=== PATIENT | female | born 1980 | race Caucasian/White ===

== ENCOUNTER 2019-09-05 13:57 | Emergency (ER) | payer OTHER ==
[~2019-09-05] VITALS: Ht 162.6 cm; Wt 71.5 kg
[2019-09-05] MEDS ORDERED: FLUO40CA PO (14:29)
[2019-09-05] MEDS ORDERED: OMEP40CA97 PO (14:29)
[2019-09-05 14:43] LABS: BASO % 0.3 % (0.0-1.0); EOS # 0.2 10^3/uL (0.0-0.5); EOS % 1.4 % (0.0-3.0); HEMATOCRIT 43.5 % (36.0-47.0); HEMOGLOBIN 14.8 g/dl (12.0-15.5); LYMPH % 8.2 % (24.0-44.0); MEAN CORPUSCULAR HEMOGLOBIN 30.7 pg (27.0-33.0); MEAN CORPUSCULAR VOLUME 90.2 fl (80.0-96.0); MONO # 0.8 10^3/uL (0.0-0.8); MONO % 6.1 % (0.0-5.0); NEUTROPHILS # 10.5 10^3/uL (1.5-8.5); NEUTROPHILS % 83.6 % (36.0-66.0); PLATELET COUNT, AUTOMATED 243 10^3/uL (150-450); RED BLOOD COUNT 4.82 10^6/uL (4.00-5.40); WHITE BLOOD COUNT 12.5 10^3/uL (4.0-10.0)
[2019-09-05] MEDS ORDERED: GI COCKTAIL 50ML BTL(HYOSCYAMINE/MAALOX/LIDOCAINE VISCOUS)(1:3:1) PO ONE (14:45)
--- NOTE | 2019-09-05 14:59 | REP ---
CHEST, SINGLE VIEW: There is no evidence of acute infiltrate. No pleural effusion is seen. The heart is normal in size. The mediastinal silhouette is unremarkable. The visualized osseous structures are intact. IMPRESSION: No acute pulmonary disease. Electronically Signed by Caleb Graf MD 09/06/2019 12:32 P
[2019-09-05 15:09] LABS: BLOOD UREA NITROGEN 6 MG/DL (7-18); CALCIUM LEVEL 8.9 MG/DL (8.5-10.1); CARBON DIOXIDE LEVEL 27 MEQ/L (21-32); CHLORIDE LEVEL 107 MEQ/L (98-107); CK-MB VALUE MASS < 1.0 NG/ML (<3.6); CPK CREATINE PHOSPHOKINASE 52 U/L (26-192); CREATININE FOR GFR 0.93 MG/DL (0.55-1.30); GLOMERULAR FILTRATION RATE > 60.0 (>60); GLUCOSE, FASTING 74 MG/DL (70-100); MB/CK RELATIVE INDEX 1.92 (< OR =4); POTASSIUM SERUM 4.1 MEQ/L (3.5-5.1); SODIUM LEVEL 140 MEQ/L (136-145); TROPONIN I < 0.02 NG/ML (< 0.10)
[2019-09-05] MEDS ORDERED: PANTOPRAZOLE 40MG INJ (PROTONIX) (C9113) IV ONE (16:00)
[2019-09-05] MEDS ORDERED: DICYCLOMINE 10 MG CAP PO ONE (16:00)
[2019-09-05] MEDS ORDERED: METOCLOPRAMIDE INJ 10MG/2ML VIAL (J2765) IV ONE (16:00)
[2019-09-05 17:00] VITALS: BP 150/88
--- NOTE | 2019-09-06 13:19 | ECGEPIP ---
[facility] - ED Test Date: 2019-09-05 Pat Name: ARABELLA LABOY Department: Room: - Gender: Female Yam Curer: : [id number] Requested By: Marcia Sawant Order Number: [id number] Reading MD: Marcia Sawant Measurements Intervals [place] Rate: 86 P: 77 [place]: 148 QRS: 77 QRSD: 95 T: 74 QT: 378 QTc: 454 Interpretive Statements SINUS RHYTHM NO PRIOR Electronically Signed on 09-06-2019 13:18:53 EST by Marcia Sawant
== END 2019-09-05 17:49 | disposition left against medical advice (07) ==
LOC: M ED 13:57
DX: K29.70 Gastritis, unspecified, without bleeding (principal); K21.9 Gastro-esophageal reflux disease without esophagitis; Z98.84 Bariatric surgery status; Z79.899 Other long term (current) drug therapy; Z88.1 Allergy status to other antibiotic agents; Z88.2 Allergy status to sulfonamides; Z88.8 Allergy status to other drugs, medicaments and biological substances; F17.210 Nicotine dependence, cigarettes, uncomplicated
CPT/HCPCS: 71045; 80048; 82550; 82553; 84484; 85025; 93005; 93041; 94760; 96374; 96375; 99285; C9113; J2765

== ENCOUNTER → 2023-08-01 | Outpatient (REF) ==
[~2023-08-01] MED LIST: FLUO40CA PO; OMEP40CA4 PO
== END ==
LOC: M RAD 11:49
PROVIDERS: ATTEND Internal Medicine
DX: M25.511 Pain in right shoulder (principal); M46.1 Sacroiliitis, not elsewhere classified; M16.0 Bilateral primary osteoarthritis of hip

== ENCOUNTER 2024-06-24 15:44 | Emergency (ER) | payer OTHER ==
[~2024-06-24] VITALS: Ht 157.5 cm; Wt 94.2 kg
[2024-06-24] MEDS ORDERED: BUPR15TASR (16:09)
[2024-06-24] MEDS ORDERED: CYCL-707 (16:09)
[2024-06-24] MEDS ORDERED: ALBU8.5H (16:09)
[2024-06-24] MEDS ORDERED: PROP10TA56 (16:09)
[2024-06-24] MEDS ORDERED: FERR325T19 (16:09)
[2024-06-24] MEDS ORDERED: METO1TAB87 (16:09)
[2024-06-24] MEDS ORDERED: B-1210009 (16:09)
[2024-06-24] MEDS ORDERED: VITA200016 (16:09)
[2024-06-24] MEDS ORDERED: LOSA50TA28 (16:09)
[2024-06-24] MEDS ORDERED: HYDR200T46 PO (16:10)
[2024-06-24] MEDS: METOCLOPRAMIDE INJ 10MG/2ML VIAL IV ONE (16:41)
[2024-06-24 16:59] LABS: BASO # 0.1 10^3/uL (0.0-0.2); BASO % 0.9 % (0.0-1.0); EOS # 0.1 10^3/uL (0.0-0.5); HEMATOCRIT 35.1 % (36.0-47.0); LYMPH # 1.3 10^3/uL (1.5-5.0); LYMPH % 14.1 % (24.0-44.0); MEAN CORPUSCULAR HEMOGLOBIN 30.8 pg (27.0-33.0); MEAN CORPUSCULAR HGB CONC 34.2 g/dl (32.0-36.5); MONO # 0.7 10^3/uL (0.0-0.8); MONO % 7.3 % (2.0-8.0); NEUTROPHILS # 6.9 10^3/uL (1.5-8.5); NEUTROPHILS % 76.5 % (36.0-66.0); PLATELET COUNT, AUTOMATED 333 10^3/uL (150-450)
[2024-06-24 17:21] LABS: CK-MB VALUE MASS < 1.0 NG/ML (<3.6); LIPASE 43 U/L (12-53)
[2024-06-24 17:23] LABS: ALBUMIN 3.4 G/DL (3.2-5.2); ALKALINE PHOSPHATASE 62 U/L (35-104); ALT/SGPT 25 U/L (7.0-40); AST/SGOT 16 U/L (<34); BILIRUBIN,DIRECT < 0.1 MG/DL (<0.4); BILIRUBIN,TOTAL 0.2 MG/DL (0.3-1.2); BLOOD UREA NITROGEN 10 MG/DL (9-23); CARBON DIOXIDE LEVEL 26 MMOL/L (20-31); CHLORIDE LEVEL 107 MMOL/L (98-107); CREATININE FOR GFR 0.87 MG/DL (0.55-1.30); GLOMERULAR FILTRATION RATE > 60.0 (>58); GLUCOSE, FASTING 91 MG/DL (60-100); POTASSIUM SERUM 4.3 MMOL/L (3.5-5.1); SODIUM LEVEL 140 MMOL/L (136-145); TOTAL PROTEIN 6.7 G/DL (5.7-8.2)
[2024-06-24 17:31] LABS: CPK CREATINE PHOSPHOKINASE 81 U/L (34-145); MB/CK RELATIVE INDEX 1.23 (< OR =4)
[2024-06-24 17:45] VITALS: BP 119/74; TEMP 98.2; O2SAT 99
[2024-06-24 18:41] LABS: CK-MB VALUE MASS < 1.0 NG/ML (<3.6)
[2024-06-24 18:45] LABS: CPK CREATINE PHOSPHOKINASE 83 U/L (34-145)
== END 2024-06-24 18:11 | disposition home or self-care (01) ==
LOC: M ED 15:44 → EDBD 15:44 → M ED 18:11
DX: R07.9 Chest pain, unspecified (principal); R10.9 Unspecified abdominal pain; K21.9 Gastro-esophageal reflux disease without esophagitis; K58.9 Irritable bowel syndrome, unspecified; M32.9 Systemic lupus erythematosus, unspecified; Z88.2 Allergy status to sulfonamides; Z88.8 Allergy status to other drugs, medicaments and biological substances; Z79.51 Long term (current) use of inhaled steroids; Z79.899 Other long term (current) drug therapy
CPT/HCPCS: 74021; 80048; 80076; 82550; 82553; 83690; 84484; 85025; 93005; 93041; 96374; 99284; J2765

== ENCOUNTER → 2024-07-29 | Outpatient (REF) | payer OTHER ==
[~2024-07-29] MED LIST changes: +ALBU8.5H; +B-1210009; +BUPR15TASR; +CYCL-707; +FERR325T19; +HYDR200T46 PO; +LOSA50TA28; +METO1TAB87; +PROP10TA56; +VITA200016
[2024-07-29 13:04] LABS: BASO # 0.1 10^3/uL (0.0-0.2); EOS # 0.1 10^3/uL (0.0-0.5); EOS % 0.8 % (0.0-3.0); HEMATOCRIT 42.2 % (36.0-47.0); HEMOGLOBIN 13.9 g/dl (12.0-15.5); LYMPH # 1.4 10^3/uL (1.5-5.0); LYMPH % 15.2 % (24.0-44.0); MEAN CORPUSCULAR HEMOGLOBIN 30.1 pg (27.0-33.0); MEAN CORPUSCULAR HGB CONC 32.9 g/dl (32.0-36.5); MEAN CORPUSCULAR VOLUME 91.3 fl (80.0-96.0); MONO # 0.5 10^3/uL (0.0-0.8); MONO % 5.1 % (2.0-8.0); NEUTROPHILS # 7.3 10^3/uL (1.5-8.5); NEUTROPHILS % 77.5 % (36.0-66.0); PLATELET COUNT, AUTOMATED 349 10^3/uL (150-450); RED BLOOD COUNT 4.62 10^6/uL (4.00-5.40); WHITE BLOOD COUNT 9.4 10^3/uL (4.0-10.0)
[2024-07-29 13:08] LABS: ERYTHROCYTE SEDIMENTATION RATE 43 mm/hr (0-20)
[2024-07-29 13:23] LABS: C REACTIVE PROTEIN QUANTITATIV < 0.50 MG/DL (<1.0); COMPLEMENT C3 169.8 MG/DL (90.0-170.0); COMPLEMENT C4 37.3 MG/DL (12-36)
[2024-07-29 13:24] LABS: ALKALINE PHOSPHATASE 79 U/L (35-104); ALT/SGPT 50 U/L (7.0-40); AST/SGOT 29 U/L (<34); BILIRUBIN,TOTAL 0.3 MG/DL (0.3-1.2); BLOOD UREA NITROGEN 6 MG/DL (9-23); CARBON DIOXIDE LEVEL 29 MMOL/L (20-31); CHLORIDE LEVEL 98 MMOL/L (98-107); CREATININE FOR GFR 0.75 MG/DL (0.55-1.30); GLOMERULAR FILTRATION RATE > 60.0 (>58); GLUCOSE, FASTING 89 MG/DL (60-100); POTASSIUM SERUM 3.9 MMOL/L (3.5-5.1); SODIUM LEVEL 136 MMOL/L (136-145); TOTAL PROTEIN 8.5 G/DL (5.7-8.2)
[2024-07-29 13:34] LABS: APPEARANCE, URINE CLEAR (CLEAR); BACTERIA, URINE AUTO 1+ (NEGATIVE); BILIRUBIN, URINE AUTO NEGATIVE (NEGATIVE); BLOOD, URINE BLOOD NEGATIVE (NEGATIVE); COLOR, URINE STRAW (YELLOW); GLUCOSE, URINE (UA) AUTO NEGATIVE (NEGATIVE); KETONE, URINE AUTO NEGATIVE (NEGATIVE); LEUKOCYTE ESTERASE, URINE AUTO NEGATIVE (NEGATIVE); NITRITE, URINE AUTO NEGATIVE (NEGATIVE); PROTEIN, URINE AUTO NEGATIVE (NEGATIVE); RBC, URINE AUTO 0 /HPF (0-3); SPECIFIC GRAVITY URINE AUTO 1.002 (1.002-1.035); SQUAMOUS EPITHELIAL CELL UR AU 1 /HPF (0-6); UROBILINOGEN, URINE AUTO 0.2 mg/dL (0.0-2.0); WBC, URINE AUTO 0 /HPF (0-3)
[2024-07-29 13:43] LABS: HEPATITIS B SURFACE ANTIGEN NEGATIVE (NEGATIVE)
[2024-07-29 14:03] LABS: HEPATITIS C VIRUS ABY INDEX < 0.02 INDEX (<0.8)
[2024-07-29 14:04] LABS: CREATININE,RANDOM URINE 22.7 MG/DL
[2024-07-29 14:06] LABS: TOTAL PROTEIN,RANDOM URINE < 6.0 MG/DL (0.0-14.0)
[2024-07-31 10:16] LABS: HEPATITIS B CORE ANTIBODY IGG NON-REACTIVE (NON-REACTIVE)
[2024-08-01 13:41] LABS: QuantiFERON-TB Gold Plus NEGATIVE (NEGATIVE)
[2024-08-02 23:27] LABS: COMPLEMENT TOTAL (CH50) 57 U/mL (31-60)
== END ==
LOC: M SFHCRHEU 10:29
PROVIDERS: ATTEND Internal Medicine Rheumatology
DX: M45.0 Ankylosing spondylitis of multiple sites in spine (principal); M35.9 Systemic involvement of connective tissue, unspecified; R21 Rash and other nonspecific skin eruption; J34.0 Abscess, furuncle and carbuncle of nose; I73.00 Raynaud's syndrome without gangrene; H20.9 Unspecified iridocyclitis; K22.4 Dyskinesia of esophagus; R52 Pain, unspecified; R53.83 Other fatigue